=== PATIENT | male | born 1960 | race American Indian/Alaskan Native ===

== ENCOUNTER 2021-05-03 06:20 | Day surgery (SDC) | payer OTHER ==
[~2021-05-03 06:20] MED LIST: IOHEXOL 300 MG/ML 50ML IV ONE; LACTATED RINGERS 1,000 ML IV SCH; MIDAZOLAM 2 MG/2 ML INJ IV NR; WATER FOR IRRIG STERILE 1,500 ML BOTTLE IR ONE; WATER FOR IRRIG STERILE 2000 ML IR ONE
[2021-05-03] MEDS ORDERED: ONDANSETRON 4 MG/2 ML INJ IV PRN (08:22)
[2021-05-03] MEDS ORDERED: fentaNYL 100 MCG/2 ML INJ IV PRN (08:22)
[2021-05-03] MEDS ORDERED: HYDROcodone/ACETAMINOPHEN 5-325 MG TAB PO PRN (08:22)
--- NOTE | 2021-05-03 08:22 | Anesthesia Consultation ---
Anesthesia Consult and Med Hx Date of service: 05/03/21 - Airway Anesthetic Teeth Evaluation: Good ROM Head & Neck: Adequate Mental/Hyoid Distance: Adequate Mallampati Class: Class II Intubation Access Assessment: Probably Good - Pre-Operative Health Status ASA Pre-Surgery Classification: ASA2 Proposed Anesthetic Plan: General - Pulmonary Hx Smoking: Yes (STOPPED 06/2020 , 1/2 PPD X 25 YRS) Hx Respiratory Symptoms: No - Cardiovascular System Hx Hypertension: Yes Hx Heart Attack/AMI: No Hx Percutaneous Transluminal Coronary Angioplasty (PTCA): No - Central Nervous System CVA: No - Endocrine Hx Renal Disease: No Hx Liver Disease: No Hx Non-Insulin Dependent Diabetes: Yes Hx Thyroid Disease: No - Additional Comments Anesthesia Medical History Comments: No hx anesthetic complications.
[2021-05-03] MEDS ORDERED: ceFAZolin/Water 2 GM/20 ML 2 GM/20 ML SYRINGE IV ONE (08:37)
[2021-05-03] MEDS ORDERED: ceFAZolin/STERILE WATER 2 GM/20 ML SYRINGE IV NR (10:00)
[2021-05-03] MEDS ORDERED: ONDANSETRON 4 MG/2 ML INJ ONE (10:19)
[2021-05-03] MEDS ORDERED: LIDOCAINE MPF (2%) 20 MG/1 ML VIAL 5 ML ONE (10:19)
[2021-05-03] MEDS ORDERED: propofoL 200 MG/20 ML VIAL IV ONE (10:20)
[2021-05-03] MEDS ORDERED: fentaNYL 100 MCG/2 ML INJ ONE (10:20)
--- NOTE | 2021-05-03 12:09 | Post Operative Note ---
Date of procedure: 05/03/21 Pre-op diagnosis: hematuria Post-op diagnosis: same Findings: bph Anesthesia: GETA Surgeon: RAY KEE Estimated blood loss: none Pathology: list (bladder) Specimen disposition: to lab Condition: stable Disposition: PACU
--- NOTE | 2021-05-03 12:11 | Discharge Summary ---
Short Stay Discharge Plan Activity: other (no straining ) Weight Bearing Status: Full Weight Bearing Diet: low fat, low cholesterol, low salt Special Instructions: other (inc fluids ) Durable Medical Equipment Needed Upon Discharge: other ([place] ) Follow up with: JOSIAH REYNAGA MD [Primary Care Provider] - 7 Days RAY KEE MD [Staff Physician] - 7 Days
--- NOTE | 2021-05-03 12:47 | Operative Report ---
DATE OF SURGERY: 05/03/2021 PREOPERATIVE DIAGNOSES: Abnormal cytology, microscopic hematuria, negative CT. POSTOPERATIVE DIAGNOSES: Abnormal cytology, microscopic hematuria, negative CT. PROCEDURE: Cystoscopy, random biopsy with fulguration of biopsy site and retrograde. SURGEON: Derrek Dennis MD ANESTHESIA: General. FINDINGS: A gentleman with abnormal cytology and a negative CT, now presents for cystoscopy with microscopic hematuria. DESCRIPTION OF PROCEDURE: The patient was brought to the operating room and placed on the operating table. Following induction of anesthesia, placed in lithotomy position, prepped and draped in usual sterile fashion. Cystourethroscopy showed no bladder lesion. Prostate showed mild trilobar hypertrophy with a small median bar. Retrograde showed good filling, good drainage. We put a little more on the right side, but there was good drainage. No persistent filling defects on fluoroscopy. Biopsies were done, random 3 in the bladder, 1 in the prostatic urethra. The patient tolerated the procedure well. Area was cauterized. A 20-Macedonian coude was placed. He was brought to recovery in stable condition. TID: [id number] RECEIPT: [id number] P[facility]/SHANEKA
--- NOTE | 2021-05-03 12:58 | Post Anesthesia Evaluation ---
- Post Anesthesia Evaluation Patient Participated: Yes Airway Patent: Yes Stable Respiratory Function: Yes Nausea/Vomiting: No Temp > 96.8F: Yes Pain Manageable: Yes Adequeate Hydration: Yes Anesthesia Complications: No
--- NOTE | 2021-05-03 12:58 | Anesthesia Day of Surgery ---
Anesthesia Day of Surgery - Day of Surgery Patient Examined: Yes Patient H&P Reviewed: Yes Patient is NPO: Yes
--- NOTE | 2021-05-03 14:15 | Fluoroscopy Report ---
FLUOROSCOPY RETROGRADE UROGRAPHY HISTORY: Hematuria FINDINGS: Fluoroscopy was provided by radiology during retrograde urography by the urologist. There i s normal filling of both renal collecting systems. No filling defect or abnormal dilatation is identi fied. IMPRESSION: Unremarkable bilateral retrograde pyelograms Fluoroscopy time: 0.1 minutes Fluoroscopic images: 6 Signer Name: Jose Carrizales Jr, MD Signed: 05/03/2021 2:11 PM Workstation Name: [id number]
[2021-05-03 18:00] VITALS: BP 136/88
== END 2021-05-03 13:20 | disposition home or self-care (01) ==
LOC: OR 06:20
PROVIDERS: ATTEND Urology
DX: N30.21 Other chronic cystitis with hematuria (principal); R82.998 Other abnormal findings in urine; N40.0 Benign prostatic hyperplasia without lower urinary tract symptoms; N32.89 Other specified disorders of bladder; E78.00 Pure hypercholesterolemia, unspecified; I10 Essential (primary) hypertension; E11.9 Type 2 diabetes mellitus without complications; Z87.891 Personal history of nicotine dependence; Z79.899 Other long term (current) drug therapy; Z79.84 Long term (current) use of oral hypoglycemic drugs; Z90.49 Acquired absence of other specified parts of digestive tract; Z98.890 Other specified postprocedural states
CPT/HCPCS: 36415; 52204; 74420; 82962; 84132; 88305; A4217; C1758; J0690; J2405; J2704; J3010; J7120; Q9967

== ENCOUNTER 2022-03-28 07:04 | Day surgery (SDC) | payer OTHER ==
[~2022-03-28 07:04] MED LIST changes: +ACETAMINOPHEN 500 MG TAB PO SCH; -IOHEXOL 300 MG/ML 50ML IV ONE; -WATER FOR IRRIG STERILE 1,500 ML BOTTLE IR ONE; -WATER FOR IRRIG STERILE 2000 ML IR ONE
[2022-03-28] MEDS ORDERED: LIDOCAINE MPF (2%) 20 MG/1 ML VIAL 5 ML ONE (08:53)
[2022-03-28] MEDS ORDERED: propofoL 200 MG/20 ML VIAL IV ONE ×2 (08:54→10:36)
[2022-03-28] MEDS ORDERED: fentaNYL 100 MCG/2 ML INJ ONE ×2 (08:54→11:03)
[2022-03-28] MEDS ORDERED: dexAMETHasone 20 MG/5 ML VIAL ONE (09:25)
[2022-03-28] MEDS ORDERED: ONDANSETRON 4 MG/2 ML INJ ONE (09:25)
[2022-03-28] MEDS ORDERED: iohexoL 50 ML in SODIUM CHLORIDE 0.9% 50 ML IR ONE (10:22)
[2022-03-28] MEDS ORDERED: HYDROcodone/ACETAMINOPHEN 5-325 MG TAB PO PRN (10:24)
[2022-03-28] MEDS ORDERED: HYDROmorphone 1 MG/1 ML INJ IV PRN (10:24)
--- NOTE | 2022-03-28 10:24 | Anesthesia Day of Surgery ---
Anesthesia Day of Surgery - Day of Surgery Patient Examined: Yes Patient H&P Reviewed: Yes Patient is NPO: Yes
--- NOTE | 2022-03-28 10:24 | Anesthesia Consultation ---
Anesthesia Consult and Med Hx Date of service: 03/28/22 - Airway Anesthetic Teeth Evaluation: Good ROM Head & Neck: Adequate Mental/Hyoid Distance: Adequate Mallampati Class: Class II Intubation Access Assessment: Probably Good - Pre-Operative Health Status ASA Pre-Surgery Classification: ASA2 Proposed Anesthetic Plan: General - Pulmonary Hx Smoking: No (quit 2018) Hx Respiratory Symptoms: No Hx Sleep Apnea: No (NAY PRE SCREEN HIGH RISK) - Cardiovascular System Hx Hypertension: Yes Hx Heart Attack/AMI: No Hx Percutaneous Transluminal Coronary Angioplasty (PTCA): No - Central Nervous System CVA: No Hx Back Pain: Yes - Endocrine Hx Renal Disease: No Hx Liver Disease: No Hx Non-Insulin Dependent Diabetes: Yes Hx Thyroid Disease: No - Other Systems Hx Substance Use: Yes (occasional THC) - Additional Comments Anesthesia Medical History Comments: No hx anesthetic complications.
[2022-03-28] MEDS ORDERED: SUCCINYLCHOLINE CHLORIDE 200 MG/10 ML INJ MDV ONE (10:39)
[2022-03-28] MEDS ORDERED: ePHEDrine SULFATE 50 MG/1 ML INJ ONE (10:51)
[2022-03-28] MEDS ORDERED: WATER FOR IRRIG STERILE 2000 ML IR ONE (10:56)
[2022-03-28] MEDS ORDERED: PHENYLEPHRINE/NS 1,000 MCG/10 ML SYRINGE (OR USE) IV ONE (11:11)
[2022-03-28] MEDS ORDERED: FUROSEMIDE 40 MG/4 ML INJ ONE (11:15)
--- NOTE | 2022-03-28 12:17 | Post Operative Note ---
Date of procedure: 03/28/22 Pre-op diagnosis: abn cytology Post-op diagnosis: same Findings: glomerulations Procedure: cysto biopsies fulg rpgs Anesthesia: GETA Surgeon: RAY KEE Estimated blood loss: none Pathology: list (bladdder prostate) Specimen disposition: to lab Condition: stable Disposition: PACU
--- NOTE | 2022-03-28 12:18 | Discharge Summary ---
Short Stay Discharge Plan Activity: other (inc fluids ) Weight Bearing Status: Full Weight Bearing Diet: low fat, low cholesterol, low salt Special Instructions: other (home with cath ) Additional Instructions: KEEP CHANEL CATHETER IN UNTIL TOMORROW. CALL THE OFFICE FOR AN AM APPOINTMENT. RECORD URINE AMOUNTS EVERYTIME YOU EMPTY IT. Follow up with: JOSIAH REYNAGA MD [Primary Care Provider] - 7 Days RAY KEE MD [Staff Physician] - 3 Days Forms: [facility]
--- NOTE | 2022-03-28 12:48 | Operative Report ---
DATE OF SURGERY: 03/28/2022 PREOPERATIVE DIAGNOSIS: Abnormal cytology. POSTOPERATIVE DIAGNOSIS: Abnormal cytology. PROCEDURES: Cystoscopy, multiple bladder biopsies, retrograde biopsy of the prostate. SURGEON: Derrek Dennis MD ANESTHESIA: General. FINDINGS: This is a gentleman with abnormal cytology, now presents for multiple repeat biopsies. All risks and implications discussed. DESCRIPTION OF PROCEDURE: The patient was brought to operating room and placed on the operating table. Following induction of anesthesia, placed in a lithotomy position, prepped and draped in the usual sterile fashion. Bladder was well visualized with 30 and 70-degree lenses. I did not see any papillary tumors. Retrograde showed very delicate collecting system on both sides. No persistent filling defects. There were no lesions except to note that there was lots of glomerulations noted when we decompressed the bladder. Multiple biopsies were done of the bladder and prostatic urethra. We even did a TUR biopsy of the prostate. The patient tolerated the procedure well. No significant complication. A 20-coude was placed, brought to recovery in a stable condition. TID: [id number] RECEIPT: [id number] PARK/ALPA
--- NOTE | 2022-03-28 13:49 | Fluoroscopy Report ---
INTRAOPERATIVE FLUOROSCOPY: INDICATION / CLINICAL INFORMATION: HEMATURIA. Bilateral retrograde pyelograms, multiple biopsies of t he urinary bladder and prostate. TECHNIQUE: Multiple intraoperative fluoroscopic images were acquired during retrograde pyelogram. Odalys ges demonstrate retrograde flow of contrast to the renal pelvis bilaterally without obstructing lesio n. A drainage image demonstrates only minimal residual contrast within the upper pole calyx of the ri ght kidney. No extravasation demonstrated.. FINDINGS: Multiple intraoperative images without evidence of complication. A total of 10 cc Omnipaque 300 contr ast was used. Fluoroscopy Time: 10 seconds. Total dose: mGy. Fluoroscopy Images: 4. Signer Name: Akash Rabago II, MD Signed: 03/28/2022 1:45 PM Workstation Name: [id number]
[2022-03-28 16:50] VITALS: BP 144/89
== END 2022-03-28 12:30 | disposition home or self-care (01) ==
LOC: OR 07:04
PROVIDERS: ATTEND Urology
DX: R39.89 Other symptoms and signs involving the genitourinary system (principal); N40.0 Benign prostatic hyperplasia without lower urinary tract symptoms; N32.89 Other specified disorders of bladder; R31.29 Other microscopic hematuria; E78.00 Pure hypercholesterolemia, unspecified; I10 Essential (primary) hypertension; K21.9 Gastro-esophageal reflux disease without esophagitis; M19.90 Unspecified osteoarthritis, unspecified site; E11.9 Type 2 diabetes mellitus without complications; Z72.89 Other problems related to lifestyle; Z79.899 Other long term (current) drug therapy; Z79.84 Long term (current) use of oral hypoglycemic drugs; Z87.891 Personal history of nicotine dependence; Z90.49 Acquired absence of other specified parts of digestive tract; Z98.890 Other specified postprocedural states
CPT/HCPCS: 52204; 52601; 74420; 82962; 88112; 88305; 88341; 88342; C1758; J0330; J1100; J1940; J2250; J2370; J2405; J2704; J3010; J3490; J7120; Q9967